=== PATIENT | female | born 1945 ===

== ENCOUNTER 2021-04-02 08:15 | Inpatient (IN) | payer OTHER ==
[~2021-04-02] VITALS: Ht 157.5 cm; Wt 59.4 kg
[2021-04-02] MEDS ORDERED: SYNTHROID75 MCG PO (11:37)
[2021-04-02] MEDS ORDERED: NORVASC10 MG PO (11:37)
[2021-04-07] MEDS ORDERED: INTEGRA PLUS C1 EACH PO (06:17)
[2021-04-07] MEDS ORDERED: BACTRIM DS TAB1 EACH PO (06:17)
[2021-04-07] MEDS ORDERED: OXYC1TAB9 PO (06:17)
[2021-04-07] MEDS ORDERED: XARELTO10 MG PO (06:17)
== END 2021-04-07 12:13 | DRG 470 ==
LOC: O/R 04-05 06:07 → SURH 04-05 06:07
PROVIDERS: ADMIT Orthopaedic Surgery Sports Medicine; ATTEND Orthopaedic Surgery Sports Medicine
PROC: 0SRC0J9 Replacement of Right Knee Joint with Synthetic Substitute, Cemented, Open Approach (ICD-10-PCS; principal; 2021-04-05 10:45)
DX: M17.11 Unilateral primary osteoarthritis, right knee (principal); I10 Essential (primary) hypertension; E03.8 Other specified hypothyroidism